=== PATIENT | female | born 1985 | race African-American/Black ===

== ENCOUNTER 2022-04-25 12:15 | Emergency (ER) | payer OTHER ==
[2022-04-25 12:23] VITALS: BP 118/74; PULSE 75; TEMP 98; BMI 31.8
== END 2022-04-25 15:49 | disposition home or self-care (01) ==
LOC: JER 12:15 → JERFT 12:15
DX: R51.9 Headache, unspecified (principal)
CPT/HCPCS: 70450-TC; 99284-25

== ENCOUNTER 2022-06-26 09:03 | Emergency (ER) | payer OTHER ==
[2022-06-26 09:11] VITALS: BP 119/78; PULSE 84; RESP 18; TEMP 98.4; BMI 33.3
[2022-06-26] MEDS ORDERED: DIPHTH,PERTUSS(ACELL),TET 0.5 ML DISP.SYRIN IM ONE ×2 (10:02→10:26)
[2022-06-26] MEDS ORDERED: BACITRACIN 15 GM TUBE TOPICAL OINTMENT TP ONE (10:03)
[2022-06-26] MEDS ORDERED: BACITRACIN 15 GM TUBE TOPICAL OINTMENT ONE (10:25)
== END 2022-06-26 11:03 | disposition home or self-care (01) ==
LOC: JERFT 09:03
PROC: 3E0234Z Introduction of Serum, Toxoid and Vaccine into Muscle, Percutaneous Approach (ICD-10-PCS; principal; 2022-06-26)
DX: S00.511A Abrasion of lip, initial encounter (principal); S09.93XA Unspecified injury of face, initial encounter
CPT/HCPCS: 90471; 90715; 99283-25

== ENCOUNTER 2023-04-07 12:27 | Emergency (ER) | payer OTHER ==
[2023-04-07 12:55] VITALS: BP 124/77; RESP 18; TEMP 99.1; BMI 33.1
[2023-04-07] MEDS ORDERED: ALBUTEROL SO4 2.5/IPRATROPIUM 0.5 INH SOL 3 ML VIAL.NEB. NEB ONE ×2 (13:26→13:40)
[2023-04-07 14:32] LABS: BASO % 0.4 % (0-2.0); EOS % 5.2 % (0-4.5); HEMATOCRIT 39.1 % (32.4-45.2); HEMOGLOBIN 12.7 GM/dL (10.7-15.3); LYMPH % 14.2 % (8-40); MCH 30.6 pg (25.7-33.7); MCHC 32.4 g/dl (32.0-36.0); MEAN CELL VOLUME 94.4 fl (80-96); MEAN PLT VOLUME 9.8 fl (7.5-11.1); MONO % 14.4 % (3.8-10.2); NEUT % 65.8 % (42.8-82.8); PLATELET COUNT 215 10^3/uL (134-434); RBC 4.15 M/mm3 (3.60-5.2); RDW 13.7 % (11.6-15.6); WHITE BLOOD COUNT 5.2 K/mm3 (4.0-10.0)
[2023-04-07 14:32] LABS: HCG,QUALITATIVE URINE Negative
[2023-04-07 14:55] LABS: POTASSIUM 5.2 mmol/L (3.5-5.1)
[2023-04-07 14:59] LABS: ALBUMIN 3.5 g/dl (3.4-5.0); BLOOD UREA NITROGEN 6.2 mg/dL (7-18); MAGNESIUM 1.8 mg/dL (1.8-2.4)
[2023-04-07 15:00] LABS: EPI CELLS 30 /uL (0-25.1); HYALINE CASTS 2 /uL (0-3.1); PH,URINE 5.5 (5.0-8.0); URINE APPEARANCE TURBID; URINE BACTERIA 283 /uL (0-1359); URINE BILIRUBIN NEGATIVE (NEGATIVE); URINE COLOR ORANGE; URINE GLUCOSE (UA) NEGATIVE (NEGATIVE); URINE KETONE TRACE (NEGATIVE); URINE LEUK ESTERASE 1+ (NEGATIVE); URINE NITRITE NEGATIVE (NEGATIVE); URINE PROTEIN 2+ (NEGATIVE); URINE RBC 19103 /uL (0-23.9); URINE WBC 189 /uL (0-25.8)
[2023-04-07 15:02] LABS: CREATININE 0.7 mg/dL (0.55-1.3)
[2023-04-07 15:04] LABS: BILIRUBIN,TOTAL 0.6 mg/dL (0.2-1)
[2023-04-07 17:53] VITALS: PULSE 94
== END 2023-04-07 17:55 | disposition home or self-care (01) ==
LOC: JER 12:27
PROC: 3E0F7GC Introduction of Other Therapeutic Substance into Respiratory Tract, Via Natural or Artificial Opening (ICD-10-PCS; principal; 2023-04-07)
DX: U07.1 COVID-19 (principal); R06.02 Shortness of breath; R07.0 Pain in throat; R05.9 Cough, unspecified; Z20.822 Contact with and (suspected) exposure to COVID-19
CPT/HCPCS: 0241U-QW; 36415; 71046-TC-FY; 71275-TC; 76775-TC; 80053; 81003; 83735; 84484; 84703; 85025; 85379; 87086; 93005; 93010; 99285-25; Q9967

== ENCOUNTER 2023-06-13 17:37 | Emergency (ER) | payer OTHER ==
[2023-06-13 17:56] VITALS: BP 111/75; PULSE 87; RESP 18; TEMP 99; BMI 32.3
== END 2023-06-13 22:14 | disposition home or self-care (01) ==
LOC: JERFT 17:37 → JER 17:37 → JERFT 22:14
DX: K59.01 Slow transit constipation (principal); K61.0 Anal abscess
CPT/HCPCS: 74019-TC-FY; 99283-25

== ENCOUNTER 2023-06-15 16:15 | Emergency (ER) | payer OTHER ==
[2023-06-15 16:37] VITALS: BP 104/69; PULSE 90; RESP 19; TEMP 98.3; BMI 33.3
== END 2023-06-15 18:40 | disposition home or self-care (01) ==
LOC: JER 16:15 → JERFT 16:15
DX: Z48.00 Encounter for change or removal of nonsurgical wound dressing (principal)
CPT/HCPCS: 99281-25